=== PATIENT | male | born 1985 ===

== ENCOUNTER 2017-08-04 10:21 | Inpatient (IN) | payer MEDICAID ==
[2017-08-04] MEDS ORDERED: Sodium Chloride 0.9% 1,000 ML IV STA ×2 (11:13→12:24)
--- NOTE | 2017-08-04 11:24 | ED PDOC ---
Arrival/HPI - General Chief Complaint: Substance Abuse Time Seen by Provider: 08/04/17 11:12 Historian: Patient - History of Present Illness Narrative History of Present Illness (Text): 08/04/17 32 year old male, whose PMH includes hypertension, seizures, and substance abuse , who presents to the emergency department complaining of ETOH withdrawal symptoms. Patient states having tremors and diaphoresis and is looking for detoxification. He notes being at [facility] a few days ago and his last drink was one day ago. No other complaints were made. Time/Duration: Prior to Arrival Symptom Onset: Sudden Symptom Course: Unchanged Past Medical History - Provider Review Nursing Documentation Reviewed: Yes - Cardiac Hx Congestive Heart Failure: No Hx Hypertension: Yes (No Meds) - Pulmonary Hx Respiratory Disorders: No - Neurological Hx Seizures: Yes (Last 2014) - HEENT Hx HEENT Disorder: No - Renal Hx Renal Disorder: No - Endocrine/Metabolic Other/Comment: Prediabetes - Hematological/Oncological Hx Anemia: Yes - Integumentary Hx Dermatological Disorder: No - Musculoskeletal/Rheumatological Hx Falls: Yes - Gastrointestinal Hx Gall Bladder Disease: Yes - Genitourinary/Gynecological Hx Sexually Transmitted Diseases: No - Psychiatric Hx Anxiety: Yes Hx Bipolar Disorder: Yes Hx Depression: Yes Hx Substance Use: Yes - Surgical History Hx Cholecystectomy: Yes ([facility] BILL 2014) - Anesthesia Hx Anesthesia: Yes Hx Anesthesia Reactions: No Hx Malignant Hyperthermia: No - Suicidal Assessment Feels Threatened In Home Enviroment: No Family/Social History - Physician Review Nursing Documentation Reviewed: Yes Family/Social History: Unknown Family HX Smoking Status: Never Smoked Hx Alcohol Use: Yes Hx Substance Use: Yes Substance used: opiates Allergies/Home Meds Allergies/Adverse Reactions: Allergies SHELLFISH Allergy (Uncoded 04/28/17 16:44) SWELLING Home Medications: Home Meds Medication Instructions Recorded Confirmed No Known Home Med 08/04/17 08/04/17 Review of Systems - Physician Review All systems were reviewed & negative as marked: Yes - Review of Systems Respiratory: absent: SOB Cardiovascular: absent: Chest Pain Gastrointestinal: absent: Abdominal Pain Neurological: Other (tremors ) Endocrine: Diaphoresis Psychiatric: Other (ETOH withdrawal ) Physical Exam Vital Signs Reviewed: Yes Vital Signs Temp Pulse Resp BP Pulse Ox 08/04/17 13:52 68 18 126/77 98 08/04/17 12:56 80 18 146/95 H 99 08/04/17 10:54 98.2 F 95 H 20 137/86 96 Temperature: Afebrile Blood Pressure: Normal Pulse: Tachycardic Respiratory Rate: Normal Appearance: Positive for: Well-Appearing, Non-Toxic, Comfortable Pain Distress: None Mental Status: Positive for: Alert and Oriented X 3 - Systems Exam Head: Present: Atraumatic, Normocephalic Pupils: Present: PERRL Extroacular Muscles: Present: EOMI Conjunctiva: Present: Normal Mouth: Present: Moist Mucous Membranes, Normal Tounge. No: Trismus Nose (External): Present: Atraumatic Respiratory/Chest: Present: Clear to Auscultation, Good Air Exchange. No: Respiratory Distress, Accessory Muscle Use, Wheezes, Rales, Rhonchi Cardiovascular: Present: Regular Rate and Rhythm, Normal S1, S2. No: Murmurs Abdomen: No: Tenderness, Distention, Peritoneal Signs, Rebound, Guarding Neurological: Present: GCS=15, CN II-XII Intact, Speech Normal Skin: Present: Warm, Dry, Normal Color. No: Rashes Psychiatric: Present: Alert, Oriented x 3, Normal Insight, Normal Concentration Medical Decision Making ED Course and Treatment: 08/04/17 Impression: 32 year old male with ETOH withdrawal looking for detoxification. Plan: -- Labs -- Pepcid, Ativan and Zofran -- Reassess and disposition Progress Notes: 08/04/17 12:[address] Maldonado, who is aware of plan and agrees to admit patient under telemetry for hypernatrima and ETOH withdrawal. - Lab Interpretations Lab Results: 08/04/17 12:00 08/04/17 12:00 Lab Results 08/04/17 12:00: Alcohol, Quantitative 307 H* 08/04/17 12:00: Sodium 150 H, Potassium 3.0 L, Chloride 105, Carbon Dioxide 29, Anion Gap 20, BUN 3 L, Creatinine 0.6 L, Est GFR ( Amer) > 60, Est GFR ( Non-Af Amer) > 60, Random Glucose 154 H, Calcium 8.4, Magnesium 1.7, Total Bilirubin 2.0 H, AST 104 H D, ALT 40, Alkaline Phosphatase 191 H D, Total Protein 7.7, Albumin 3.5, Globulin 4.1, Albumin/Globulin Ratio 0.9 L, Amylase 44 , Lipase 141 08/04/17 12:00: WBC 5.4 D, RBC 4.00, Hgb 9.8 L, Hct 30.7 L, MCV 76.8 L, MCH 24.5 L, MCHC 31.9, RDW 20.9 H, Plt Count 116 L, Gran % 69.1 H, Lymph % (Auto) 24.8, [place] % (Auto) 5.9, Eos % (Auto) 0.0 L, Baso % (Auto) 0.2, Gran # 3.73, Lymph # (Auto) 1.3, [place] # (Auto) 0.3, Eos # (Auto) 0.0, Baso # (Auto) 0.01 I have reviewed the lab results: Yes - Medication Orders Current Medication Orders: Atenolol (Tenormin) 25 mg PO DAILY EUNICE Enoxaparin Sodium (Lovenox) 40 mg SC DAILY EUNICE PRN Reason: Protocol Multivitamins/Vitamin C 10 ml/ (Sodium Chloride) 1,010 mls @ 70 mls/hr IV ONCE ONE Stop: 08/05/17 05:45 Last Admin: 08/04/17 17:40 Dose: 70 mls/hr eMAR Start Stop Document 08/04/17 17:40 TW (Rec: 08/04/17 17:40 [id number] Intravenous Solution Start Date 08/04/17 Start Time 17:40 End Date 08/04/17 Lorazepam (Ativan) 1 mg IVP Q6H PRN; Protocol PRN Reason: Anxiety Last Admin: 08/04/17 15:42 Dose: 1 mg IVP Administration Document 08/04/17 15:42 TW (Rec: 08/04/17 15:43 [id number]) Charges for Administration # of IVP Administrations 1 Behavioural Document 08/04/17 15:42 TW (Rec: 08/04/17 15:43 [id number]) Maintenance Maintenance Dose No Nonmedicinal Nonmedicinal Interventions See nurse's notes Behavior Behavior for Medication: Anxiety Continuous crying/screaming/ yelling Continuous pacing/restlessness Behavior Comment Pt states he having a panic attack. Pantoprazole Sodium (Protonix Inj) 40 mg IVP DAILY EUNICE Discontinued Medications Sodium Chloride (Sodium Chloride 0.9%) 1,000 mls @ 1,000 mls/hr IV .Q1H STA Stop: 08/04/17 12:12 Last Admin: 08/04/17 11:45 Dose: 1,000 mls/hr eMAR Start Stop Document 08/04/17 11:45 WADE (Rec: 08/04/17 11:52 [email or web address] [id number]) Intravenous Solution Start Date 08/04/17 Start Time 11:45 End Date 08/04/17 End time 12:45 Total Infusion Time 60 Famotidine (Pepcid 20mg/50ml Premix) 20 mg in 50 mls @ 150 mls/hr IVPB ONCE ONE Stop: 08/04/17 11:49 Last Admin: 08/04/17 11:52 Dose: 150 mls/hr eMAR Start Stop Document 08/04/17 11:52 WADE (Rec: 08/04/17 11:52 [email or web address] [id number]) Intravenous Solution Start Date 08/04/17 Start Time 11:52 End Date 08/04/17 End time 12:15 Total Infusion Time 23 Sodium Chloride (Sodium Chloride 0.9%) 1,000 mls @ 999 mls/hr IV .Q1H1M STA Stop: 08/04/17 13:24 Last Admin: 08/04/17 12:45 Dose: 999 mls/hr eMAR Start Stop Document 08/04/17 12:45 WADE (Rec: 08/04/17 12:45 [email or web address] [id number]) Intravenous Solution Start Date 08/04/17 Start Time 12:45 End Date 08/04/17 End time 13:45 Total Infusion Time 60 Ondansetron HCl (Zofran Inj) 4 mg IVP STAT STA Stop: 08/04/17 11:14 Last Admin: 08/04/17 11:45 Dose: 4 mg IVP Administration Document 08/04/17 11:45 WADE (Rec: 08/04/17 11:53 [email or web address] [id number]) Charges for Administration # of IVP Administrations 1 Pneumococcal Polyvalent Vaccine (Pneumovax 23 Vaccine) 0.5 ml IM .ONCE ONE Stop: 08/04/17 17:02 Potassium Chloride (K-Dur 20 Meq Er Tab) 40 meq PO STAT STA Stop: 08/04/17 12:25 Last Admin: 08/04/17 12:45 Dose: 40 meq - Scribe Statement The provider has reviewed the documentation as recorded by the Johnaibe Effie Hassan Provider Scribe Attestation: All medical record entries made by the Johanibe were at my direction and personally dictated by me. I have reviewed the chart and agree that the record accurately reflects my personal performance of the history, physical exam, medical decision making, and the department course for this patient. I have also personally directed, reviewed, and agree with the discharge instructions and disposition. Disposition/Present on Arrival - Present on Arrival Any Indicators Present on Arrival: No History of DVT/PE: No History of Uncontrolled Diabetes: No Urinary Catheter: No History of Decub. Ulcer: No History Surgical Site Infection Following: None - Disposition Have Diagnosis and Disposition been Completed?: Yes Diagnosis: Alcohol abuse, Hypernatremia Disposition: HOSPITALIZED Disposition Time: 12:30 Condition: STABLE
[2017-08-04] MEDS ORDERED: Famotidine 20mg/50ml 20 MG/50 ML BAG IVPB ONE (11:30)
[2017-08-04 12:10] LABS: BASO # 0.01 K/mm3 (0.0-2.0); BASO % 0.2 % (0.0-3.0); GRAN # 3.73 (1.4-6.5); GRAN % 69.1 % (50.0-68.0); HEMOGLOBIN 9.8 g/dL (14.0-18.0); LYMPH # 1.3 (1.2-3.4); LYMPH % 24.8 % (22.0-35.0); MEAN CELL VOLUME 76.8 fl (80.0-105.0); MEAN CORPUSCULAR HEMOGLOBIN 24.5 pg (25.0-35.0); MEAN CORPUSCULAR HGB CONC 31.9 g/dl (31.0-37.0); MONO # 0.3 (0.1-0.6); MONO % 5.9 % (1.0-6.0); PLATELET COUNT 116 10^3/uL (120.0-450.0); RED CELL DISTRIBUTION WIDTH 20.9 % (11.5-14.5); WHITE BLOOD COUNT 5.4 10^3/ul (4.5-11.0)
[2017-08-04 12:19] LABS: ALB/GLOB RATIO 0.9 (1.1-1.8); ALBUMIN 3.5 g/dL (3.0-4.8); ALT/SGPT 40 U/L (7-56); AMYLASE 44 U/L (35-125); AST/SGOT 104 U/L (17-59); BLOOD UREA NITROGEN 3 mg/dL (7-21); CALCIUM 8.4 mg/dL (8.4-10.5); GFR AFRICAN-AMERICAN > 60; GFR NON-AFRICAN AMERICAN > 60; LIPASE 141 U/L (23-300)
[2017-08-04] MEDS ORDERED: Potassium Chloride 20 mEq ER Tab PO STA (12:24)
[2017-08-04] MEDS ORDERED: Multivitamin (MVI) 10 ML in Sodium Chloride 0.9% 1,000 ML IV ONE (15:20)
[2017-08-04 17:00] VITALS: BMI 38.5
[2017-08-04] MEDS ORDERED: Pneumococcal 23-Valent Vaccine IM ONE (17:01)
[2017-08-05] MEDS ORDERED: Potassium Chloride 20 mEq ER Tab PO ONE (08:16)
[2017-08-05 09:17] LABS: HEMOGLOBIN 9.1 g/dL (14.0-18.0); MEAN CORPUSCULAR HGB CONC 31.6 g/dl (31.0-37.0); PLATELET COUNT 94 10^3/uL (120.0-450.0); RBC 3.79 10^6/uL (3.5-6.1); WHITE BLOOD COUNT 4.1 10^3/ul (4.5-11.0)
[2017-08-05 09:21] LABS: BLOOD UREA NITROGEN 5 mg/dL (7-21); CALCIUM 8.4 mg/dL (8.4-10.5); GFR AFRICAN-AMERICAN > 60; GFR NON-AFRICAN AMERICAN > 60
--- NOTE | 2017-08-05 09:30 | CP.PCM.PCO ---
Physician Communication Note - Physician Communication Note Physician Communication Note: consult declined, alcohol abuse is not indication for psychiatric consult
[2017-08-05] MEDS: Enoxaparin 40 mg Syringe SC SCH (10:44)
--- NOTE | 2017-08-05 10:54 | CP.PCM.CON ---
History of Present Illness - History of Present Illness History of Present Illness: PGY-2 GI Consult note 32 year old male, with PMH of hypertension, alcohol withdrawal seizure, and substance abuse presented to the emergency department complaining of ETOH withdrawal symptoms. Patient states that he drank 3 pints of whiskey daily for hubert past few days. Pateint states that was on a drinking binge. He states that he previously has had drinking binges resulting in wiothdrawal symptoms. He reports 1 episode of seizure due to his alcohol withdrawal. He also reports opiate abuse. Pateint states that he was receiving percocet from his pain management doctor for back opain due to a slip adn fall. However he had problems with his insurance and was not able to return and began getting then from the streets. Currently patient states he is having tremors and diaphoresis. he also reports multiple episodes of vomiting and retaching, no blood noted. As well as diarrhea, no blood noted. He notes being at [facility] a few days ago and his last drink was one day ago. No other complaints were made. Upper endoscopy on 05/05/17 showed Ti-en-Y gastrojejunostomy wwith gastrojejunal anastomosis, erythema and friable mucosa PMH: HTN, alcohol withdrawl seizure, anemia, durg abuse PSH: cholecystectomy, gastric bypass social history: drinks alcohol, deneis smoking, substance abuse with opiates, deneis IVDA allergy: shellfish Past Patient History - Past Medical History & Family History Past Medical History?: Yes - Past Social History Smoking Status: Never Smoked - CARDIAC Hx Congestive Heart Failure: No Hx Hypertension: Yes (No Meds) - PULMONARY Hx Respiratory Disorders: No - NEUROLOGICAL Hx Seizures: Yes (Last 2014) - HEENT Hx HEENT Problems: No - RENAL Hx Chronic Kidney Disease: No - ENDOCRINE/METABOLIC Other/Comment: Prediabetes - HEMATOLOGICAL/ONCOLOGICAL Hx Anemia: Yes - INTEGUMENTARY Hx Dermatological Problems: No - MUSCULOSKELETAL/RHEUMATOLOGICAL Hx Falls: Yes - GASTROINTESTINAL Hx Gall Bladder Disease: Yes - GENITOURINARY/GYNECOLOGICAL Hx Sexually Transmitted Disorders: No - PSYCHIATRIC Hx Anxiety: Yes Hx Bipolar Disorder: Yes Hx Depression: Yes Hx Substance Use: Yes - SURGICAL HISTORY Hx Cholecystectomy: Yes ([facility] BILL 2014) - ANESTHESIA Hx Anesthesia: Yes Hx Anesthesia Reactions: No Hx Malignant Hyperthermia: No Meds Allergies/Adverse Reactions: Allergies Allergy/AdvReac Type Severity Reaction Status Date / Time SHELLFISH Allergy SWELLING Uncoded 04/28/17 16:44 - Medications Medications: Current Medications Atenolol (Tenormin) 25 mg PO DAILY [facility] Last Admin: 08/05/17 10:43 Dose: 25 mg Chlordiazepoxide (Librium) 50 mg PO Q8 EUNICE PRN Reason: Protocol Enoxaparin Sodium (Lovenox) 40 mg SC DAILY EUNICE PRN Reason: Protocol Last Admin: 08/05/17 10:44 Dose: 40 mg Lorazepam (Ativan) 2 mg IVP Q4 PRN; Protocol PRN Reason: Anxiety Lorazepam (Ativan) 2 mg IVP Q6H PRN; Protocol PRN Reason: Seizure activity Ondansetron HCl (Zofran Inj) 4 mg IVP Q6H PRN PRN Reason: Nausea/Vomiting Last Admin: 08/05/17 06:12 Dose: 4 mg Pantoprazole Sodium (Protonix Inj) 40 mg IVP DAILY [facility] Last Admin: 08/05/17 10:43 Dose: 40 mg Results - Vital Signs Recent Vital Signs: Last Vital Signs Temp 98.5 F 08/05/17 07:50 Pulse 85 08/05/17 07:50 Resp 18 08/05/17 07:50 BP 120/50 L 08/05/17 07:50 Pulse Ox 100 08/05/17 07:50 - Labs Result Diagrams: 08/05/17 09:00 08/05/17 09:00 Labs: Laboratory Results - last 24 hr 08/05/17 08/05/17 09:00 09:00 WBC 4.1 L D RBC 3.79 Hgb 9.1 L Hct 28.8 L MCV 76.0 L MCH 24.0 L MCHC 31.6 RDW 21.0 H Plt Count 94 L Sodium 145 Potassium 3.4 L Chloride 108 H Carbon Dioxide 26 Anion Gap 14 BUN 5 L Creatinine 0.7 L Est GFR ( Amer) > 60 Est GFR (Non-Af Amer) > 60 Random Glucose 96 Calcium 8.4 Magnesium 1.3 L Assessment & Plan - Assessment and Plan (Free Text) Assessment: 32 year old male, with PMH of hypertension, alcohol withdrawal seizure, and substance abuse presentedwith ETOH withdrawal symptoms. alcohol withdrawal chronic anemia pancytopenia hyponatremia- resolved hypokalemia elevated LFTs Plan: continue to monitor LFTs, most likely due to acute alcoholic hepatitis on cirrhosis anemia multifactorial possibly due to chronic alcohol use as well as deficiencies due to gastric bypass will order PT , INR previous imaging reviewed follow up abd ultrasound consider steroids if discriminant Function is elevated case discussed and reviewed with Dr. Naranjo
[2017-08-05 11:25] LABS: INR 2.27 (0.93-1.08); PARTIAL THROMBOPLASTIN TIME 36.9 Seconds (25.1-36.5); PROTHROMBIN TIME 26.5 SECONDS (9.4-12.5)
--- NOTE | 2017-08-05 12:32 | US ---
HISTORY: Alcoholism COMPARISON: Comparison made with the abdominal ultrasound and CT scan abdomen pelvis both dated 11/20/2014 TECHNIQUE: Sonographic evaluation of the right upper quadrant of the abdomen. FINDINGS: LIVER: Measures 15.4 cm in length. Increased echogenicity of the liver parenchyma likely due to fatty infiltration however other infiltrative hepatocellular disease process not excluded a. No mass. No intrahepatic bile duct dilatation. GALLBLADDER: Cholecystectomy COMMON BILE DUCT: Measures 4.8 mm. No stones. No dilatation. PANCREAS: Pancreas is partially obscured by body habitus and bowel gas. However the visualized portions of the pancreas appear grossly unremarkable KIDNEYS: Measures 12.1 x 5.6 x 8.3 cm in length. Normal echogenicity. No calculus, mass, or hydronephrosis. Left kidney measures 13.8 x 5.5 x 6.5 AORTA: No aneurysmal dilatation. IVC: Spleen is enlarged measuring 15.7 cm in greatest dimension OTHER FINDINGS: None . IMPRESSION: Increased hepatic echotexture consistent with fatty infiltration however other infiltrative hepatocellular disease process not excluded. Status post cholecystectomy.
[2017-08-05 20:07] VITALS: O2SAT 98
[2017-08-05] MEDS ORDERED: Levalbuterol 0.63 MG/3 ML Inhal Soln UD IH PRN (22:49)
--- NOTE | 2017-08-06 01:23 | CON ---
DATE: 08/05/2017 REFERRING PHYSICIAN: Dr. Maldonado. REASON FOR CONSULT: Obesity, may have sleep apnea syndrome, insomnia. HISTORY OF PRESENT ILLNESS: This is a 32-year-old obese male with past medical history significant for gastric bypass surgery with about 200 lb weight loss, hypertension, alcohol-related seizure, history of substance abuse. According to the patient, he drinks very heavily. Whisky is the choice of alcohol. He also has been abusing Percocet. Presently, he is on alcohol withdrawal protocol. CPAP was ordered for him, but refused to use it, wants to get some benzodiazepine for sleep. Refusing to use BiPAP. No nausea, no vomiting and no diarrhea. PAST MEDICAL HISTORY: Significant for gastric bypass surgery, hypertension, alcohol use, alcohol-related seizures, history of substance abuse. ALLERGIES: TO SHELLFISH. SOCIAL HISTORY: Denied any smoking, positive substance abuse and also alcohol abuse. FAMILY HISTORY: No significant cardiopulmonary disease reported. MEDICATIONS: He is on Ativan 2 mg every 4 hour p.r.n., also Ativan 2-6 hours p.r.n. for seizure, Bentyl 10 mg 3 times a day p.r.n., Librium 50 mg every 8 hour [id number], Lovenox 40 mg subcu daily, Protonix 40 mg daily, Tenormin 25 mg daily, Zofran p.r.n. basis. REVIEW OF SYSTEM: No headache, no rhinitis. No cough. No chest pain. Anxious with palpitation. No vomiting, no hematuria. No diarrhea. No leg pain or leg swelling. PHYSICAL EXAMINATION: GENERAL: Sitting up in the bed, no acute distress. VITAL SIGNS: Temperature 98, heart rate 74, respiratory rate 18, blood pressure 139/45, pulse ox of 98% on room air. HEENT: Moist mucous membrane. Crowded airway. Mallampati score is 4. NECK: Supple. No JVD. LUNGS: Have fair airflow with rhonchi. HEART: S1 and S2. ABDOMEN: Soft, nontender. No organomegaly. EXTREMITIES: No edema. NEUROLOGIC: Awake, alert, follows simple commands. LABORATORY DATA: Shows hemoglobin 9.1, hematocrit 28.8, WBC 4.1, platelet is 94. INR 2.27. PTT is 37. Sodium 145, potassium 3.4, chloride 108, bicarbonate 26, BUN 5, creatinine 0.7, glucose 96, hemoglobin A1c 5.4, calcium 8.4, magnesium 1.3, AST 104, ALT 40, alkaline phosphatase is 191. Alcohol level on admission was 307. Had abdominal ultrasound done, which shows increased hepatic echotexture consistent with fatty infiltrate. IMPRESSION AND PLAN: Alcohol abuse with withdrawal symptoms, history of alcohol related seizures, morbid obesity, history of sleep apnea syndrome, history of gastric bypass surgery, hypertension. The patient refusing to use BiPAP, understands risk-benefit ratio. Keep head at 45 degrees. Careful with sedation. Encourage BiPAP use. Follow up labs in the morning. Thank you and we will follow with you. Trudy Leung MD
[2017-08-06] MEDS: Levalbuterol 0.63 MG/3 ML Inhal Soln UD IH SCH ×2 (02:30→07:44)
[2017-08-06 06:47] LABS: HEMOGLOBIN 9.7 g/dL (14.0-18.0); MEAN CELL VOLUME 76.4 fl (80.0-105.0); MEAN CORPUSCULAR HEMOGLOBIN 24.3 pg (25.0-35.0); MEAN CORPUSCULAR HGB CONC 31.8 g/dl (31.0-37.0); PLATELET COUNT 98 10^3/uL (120.0-450.0); RBC 3.99 10^6/uL (3.5-6.1); RED CELL DISTRIBUTION WIDTH 21.1 % (11.5-14.5); WHITE BLOOD COUNT 5.8 10^3/ul (4.5-11.0)
[2017-08-06 07:29] LABS: ALB/GLOB RATIO 0.8 (1.1-1.8); ALBUMIN 2.8 g/dL (3.0-4.8); ALT/SGPT 29 U/L (7-56); AST/SGOT 54 U/L (17-59); BLOOD UREA NITROGEN 10 mg/dL (7-21); CALCIUM 8.1 mg/dL (8.4-10.5); GFR AFRICAN-AMERICAN > 60; GFR NON-AFRICAN AMERICAN > 60
[2017-08-06] MEDS: Enoxaparin 40 mg Syringe SC SCH (09:05)
[2017-08-06 09:10] VITALS: BP 132/87; PULSE 75
[2017-08-06 09:56] VITALS: RESP 18; TEMP 98.8
--- NOTE | 2017-08-06 10:48 | CP.PCM.PN ---
Subjective - Date & Time of Evaluation Date of Evaluation: 08/06/17 Time of Evaluation: 09:00 - Subjective Subjective: PGY-2 GI progress note Patient seen and examined at bedside. No acute distress. Patient states that he is doing better this morning. He states that he is no longer nauseous and has not vomited this morning. Patient states that he is no longer shaking or having cold sweats. He denies diarrhea, fever, abd pain. He is tolerating diet. Objective - Vital Signs/Intake and Output Vital Signs (last 24 hours): Temp Pulse Resp BP Pulse Ox 98.8 F 75 18 132/87 98 08/06/17 06:00 08/06/17 09:05 08/06/17 06:00 08/06/17 09:05 08/06/17 06:00 Intake and Output: 08/06/17 08/06/17 06:59 18:59 Intake Total 900 120 Balance 900 120 - Medications Medications: Current Medications Atenolol (Tenormin) 25 mg PO DAILY [facility] Last Admin: 08/06/17 09:05 Dose: 25 mg Chlordiazepoxide (Librium) 50 mg PO Q8 EUNICE PRN Reason: Protocol Last Admin: 08/06/17 05:56 Dose: 50 mg Dicyclomine HCl (Bentyl) 10 mg PO TID PRN PRN Reason: Symptoms of alcohol withdrawl Last Admin: 08/05/17 20:50 Dose: 10 mg Enoxaparin Sodium (Lovenox) 40 mg SC DAILY EUNICE PRN Reason: Protocol Last Admin: 08/06/17 09:05 Dose: 40 mg Levalbuterol HCl (Xopenex) 0.63 mg IH [id number] EUNICE Last Admin: 08/06/17 07:44 Dose: Not Given Levalbuterol HCl (Xopenex) 0.63 mg IH [id number] PRN PRN Reason: Shortness of Breath Lorazepam (Ativan) 2 mg IVP Q4 PRN; Protocol PRN Reason: Anxiety Last Admin: 08/06/17 09:03 Dose: 2 mg Lorazepam (Ativan) 2 mg IVP Q6H PRN; Protocol PRN Reason: Seizure activity Ondansetron HCl (Zofran Inj) 4 mg IVP Q6H PRN PRN Reason: Nausea/Vomiting Last Admin: 08/05/17 13:12 Dose: 4 mg Pantoprazole Sodium (Protonix Inj) 40 mg IVP DAILY [facility] Last Admin: 08/06/17 09:05 Dose: 40 mg Thiamine HCl (Vitamin B1 Tab) 200 mg PO BID [facility] Last Admin: 08/06/17 09:06 Dose: 200 mg - Labs Labs: 08/06/17 06:30 08/06/17 06:30 PT 26.5 SECONDS (9.4-12.5) H 08/05/17 11:00 INR 2.27 (0.93-1.08) H 08/05/17 11:00 APTT 36.9 Seconds (25.1-36.5) H 08/05/17 11:00 - Constitutional Appears: No Acute Distress - Head Exam Head Exam: ATRAUMATIC, NORMOCEPHALIC - Eye Exam Eye Exam: EOMI, Normal appearance - ENT Exam ENT Exam: Mucous Membranes Moist - Respiratory Exam Respiratory Exam: Clear to Ausculation Bilateral. absent: Decreased Breath Sounds, Rhonchi, Wheezes, Respiratory Distress, Stridor - Cardiovascular Exam Cardiovascular Exam: REGULAR RHYTHM, +S1, +S2. absent: Bradycardia, Tachycardia , Murmur - GI/Abdominal Exam GI & Abdominal Exam: Soft, Normal Bowel Sounds. absent: Distended, Firm, Tenderness - Extremities Exam Extremities Exam: Normal Inspection. absent: Pedal Edema - Neurological Exam Neurological Exam: Alert, Awake, Oriented x3 - Skin Skin Exam: Dry, Intact, Normal Color, Warm Assessment and Plan - Assessment and Plan (Free Text) Assessment: 32 year old male, with PMH of hypertension, alcohol withdrawal seizure, and substance abuse presentedwith ETOH withdrawal symptoms. alcohol withdrawal chronic anemia pancytopenia hyponatremia- resolved hypokalemia elevated LFTs Plan: continue to monitor LFTs, downtrending most likely due to acute alcoholic hepatitis on cirrhosis anemia multifactorial possibly due to chronic alcohol use as well as deficiencies due to gastric bypass INR was 2.27 elevated discriminant Function however patient has chronic cirrhosis which most likely contributes to the elevated INR previous imaging reviewed abd ultrasound showed infiltrates of the liver, suggesting fatty liver case discussed and reviewed with Dr. Naranjo
[2017-08-06] MEDS ORDERED: Potassium Chloride 20 mEq ER Tab PO ONE (13:25)
--- NOTE | 2017-08-06 22:52 | DS ---
HISTORY OF PRESENT ILLNESS: The patient seems stable. No tremors. Feels better, is off alcohol for 2 days. His vitals stable, afebrile and he wants to go home. PHYSICAL EXAMINATION: VITAL SIGNS: His temperature 98.8, heart rate 75, blood pressure 132/87, respirations 18, saturations 98% on room air. HEAD AND NECK: Normal. No JVD. No thyromegaly. CHEST: Clear. Good air entry. CARDIAC: First sound and second sound normal. ABDOMEN: Soft, obese, nontender. EXTREMITIES: No edema. NEUROLOGIC: Normal. LABORATORY DATA: His laboratory shows white count 5.8, hemoglobin 9.7, hematocrit 30, platelets are 98. The patient has chemistry, sodium 141, potassium 3.4, chloride 107, bicarb 27, BUN 10, creatinine 0.7 and his calcium 8.1, his total bili 2.6, AST normal 54, ALT normal 129, alkaline phos 141. The patient while in the hospital had ultrasound of the liver, which shows fatty infiltrations, chronic hepatocellular disease. The patient had lipase, amylase were normal. DISCHARGE DIAGNOSES: 1. Dehydration. 2. Hypernatremia. 3. Electrolyte abnormalities. 4. Chronic alcohol abuse with acute binge. 5. Morbid obesity. 6. Obstructive sleep apnea. 7. Chronic obstructive pulmonary disease. 8. Anemia. 9. Thrombocytopenia. The patient advised to follow up in the office within a day or two. The patient is insistent to go home and we will follow up him closely. Discussed with the patient in detail. Prescription sent to the patient to the pharmacy. Brian Maldonado MD
--- NOTE | 2017-08-07 | HP ---
HISTORY OF PRESENT ILLNESS: Patient came in with alcohol abuse, withdrawal, and came in with dehydration, anemia, and hypernatremia. His sodium was 150. He also felt weak, trembly. Patient does have history of alcoholic hepatitis and his abnormal liver function was present on admission plus his sodium was 150, potassium was 3. Patient otherwise has no chest pain, no shortness of breath, no other complaints. He just feels weak. PAST MEDICAL HISTORY: As I mentioned, alcoholism, plus anemia, plus chronic alcoholic hepatitis. Patient also had history of drug abuse and for narcotics for his back pain, but he seems to be abusing it, and also alcohol binge drinking and alcohol abuse. Patient had bypass surgery including gastric bypass surgery and also has history of hypertension, which seems controlled, morbid obesity, obstructive sleep apnea, iron deficiency anemia, blood transfusion, iron infusion, has upper endoscopy, and also patient denied any smoking. ALLERGIES: SHELLFISH. SOCIAL HISTORY: He lives by himself. He has a girlfriend. No history of cocaine or heroin. MEDICATIONS: He does take Librium at home, some multivitamins and supposedly gets iron. PHYSICAL EXAMINATION: GENERAL: When he came in, was sweaty, trembly. Patient is morbidly obese. VITAL SIGNS: His heart rate was 91, temperature 98.2, blood pressure 124/79, respirations 18, saturation 95% on room air. HEAD AND NECK: Normal. No JVD. No thyromegaly. CHEST: Clear, good air entry. CARDIAC: First sound and second sound normal. ABDOMEN: Soft, obese, nontender. EXTREMITIES: No edema. NEUROLOGIC: Normal. LABORATORY DATA: His laboratory study shows sodium 150, potassium 3, chloride 105, bicarb 29, BUN 3, creatinine 0.5. Liver function test shows total bilirubin 2, AST 104, ALT 40, alkaline phosphatase 191. Patient also has blood sugar of 154. His hemoglobin A1c was done and is 5.4. Patient also has magnesium of 1.3, it was initially 1.7, probably dilutional. IMPRESSION AND PLAN: 1. Chronic alcohol abuse. 2. Dehydration, hypernatremia, hypokalemia. Electrolyte replacement. 3. Hypertension. 4. Alcohol withdrawal syndrome. Continue Librium, Ativan p.r.n. We will get a psychiatric consult by Dr. Izquierdo to see reason for drinking, underlying depression or just it is a substance abuse only. 5. Obstructive sleep apnea, chronic obstructive pulmonary disease. We will continue nebulizer treatment. Get pulmonary consult. We will follow up clinically and will repeat labs in the morning. Patient is pushing to get out of the hospital. Advised him to stay and we will continue followup. We will repeat labs in the morning. Brian Maldonado MD
== END 2017-08-06 11:01 | disposition home or self-care (01) | DRG 296 ==
LOC: ED 10:21 → ERH 12:45 → 3RNO 14:27
PROVIDERS: ADMIT Internal Medicine; ATTEND Internal Medicine
DX: E86.0 Dehydration (principal); F10.239 Alcohol dependence with withdrawal, unspecified; J44.9 Chronic obstructive pulmonary disease, unspecified; D61.818 Other pancytopenia; R56.9 Unspecified convulsions; E87.0 Hyperosmolality and hypernatremia; K70.10 Alcoholic hepatitis without ascites; E87.6 Hypokalemia; Y90.8 Blood alcohol level of 240 mg/100 ml or more; I10 Essential (primary) hypertension; D50.9 Iron deficiency anemia, unspecified; G47.33 Obstructive sleep apnea (adult) (pediatric); E66.01 Morbid (severe) obesity due to excess calories; Z68.38 Body mass index [BMI] 38.0-38.9, adult; Z98.84 Bariatric surgery status